=== PATIENT | female | born 1965 | race Caucasian/White ===

== ENCOUNTER → 2016-11-13 | Outpatient (CLI) | payer BC ==
[2016-11-13 09:54] LABS: CH 30.1; CHCM 33.3; HCT 45.2 % (34.0-46.0); HDW 2.54; HGB 14.7 gm/dL (11.4-16.0); MCH 29.5 pg (25.0-35.0); MCHC 32.5 g/dL (31.0-37.0); MCV 90.9 fL (80.0-100.0); Mean Platelet Volume 8.9; RBC 4.97 m/uL (3.80-5.40); WBC 6.2 k/uL (3.8-10.6)
[2016-11-13 10:04] LABS: ALT 34 U/L (9-52); AST 20 U/L (14-36); Alkaline Phosphatase 54 U/L (38-126); Anion Gap 13 mmol/L; Blood Urea Nitrogen 13 mg/dL (7-17); Calcium 10.1 mg/dL (8.4-10.2); Carbon Dioxide 29 mmol/L (22-30); Chloride 102 mmol/L (98-107); Cholesterol 228 mg/dL (<200); Glucose 88 mg/dL (74-99); HDL Cholesterol 92 mg/dL (40-60); Non-African American GFR(MDRD) >60 (>60 ml/min/1.73 sqM); Potassium 4.8 mmol/L (3.5-5.1); Sodium 144 mmol/L (137-145); Total Bilirubin 0.7 mg/dL (0.2-1.3); Total Protein 7.3 g/dL (6.3-8.2); Triglycerides 72 mg/dL (<150)
== END | disposition home or self-care (01) ==
LOC: LABWHC1 09:20
PROVIDERS: ATTEND Family Medicine
DX: F41.1 Generalized anxiety disorder (principal); F32.1 Major depressive disorder, single episode, moderate; Z71.89 Other specified counseling
CPT/HCPCS: 36415; 80053; 80061; 84439; 84443; 85027

== ENCOUNTER 2017-07-09 20:27 | Observation (INO) | payer BC ==
[2017-07-09] MEDS ORDERED: ASPIRIN 81 MG PO STA (20:50)
[2017-07-09] MEDS ORDERED: NITROGLYCERIN SL TABS 0.4 MG TAB SUBLINGUAL STA ×3 (20:50)
--- NOTE | 2017-07-09 20:52 | ED ---
General Adult HPI - General Chief complaint: Chest Pain Stated complaint: chest tightness/heartburn Time Seen by Provider: 07/09/17 20:41 Source: patient, family, RN notes reviewed Mode of arrival: ambulatory Limitations: no limitations - History of Present Illness Initial comments: Patient is a pleasant 51-year-old female presenting to the emergency department complaining of chest discomfort. Onset was around 1 AM. Discomfort was somewhat severe last night however has been more moderate since early this morning. Discomfort remains moderate. There is some radiation towards the back and neck. No associated dyspnea, nausea, or diaphoresis. Patient had similar symptoms previously following indigestion. Patient did attempt Pepcid and Tums without any improvement of symptoms this time. - Related Data Allergies Allergy/AdvReac Type Severity Reaction Status Date / Time iodine Allergy Anaphylaxis Verified 07/09/17 20:34 Penicillins Allergy Unknown Verified 07/09/17 20:34 Childhood Review of Systems ROS Statement: Those systems with pertinent positive or pertinent negative responses have been documented in the HPI. ROS Other: All systems not noted in ROS Statement are negative. Constitutional: Denies: fever Eyes: Denies: eye pain ENT: Denies: ear pain Respiratory: Denies: cough, dyspnea Cardiovascular: Reports: chest pain. Denies: palpitations Endocrine: Denies: fatigue Gastrointestinal: Denies: abdominal pain Genitourinary: Denies: dysuria Musculoskeletal: Reports: as per HPI Skin: Denies: rash Neurological: Denies: weakness Past Medical History Past Medical History: No Reported History History of Any Multi-Drug Resistant Organisms: None Reported Past Surgical History: Breast Surgery, Cholecystectomy Past Psychological History: No Psychological Hx Reported Smoking Status: Never smoker Past Alcohol Use History: None Reported Past Drug Use History: None Reported General Exam Limitations: no limitations General appearance: alert, in no apparent distress Head exam: Present: atraumatic Eye exam: Present: normal appearance, PERRL ENT exam: Present: normal oropharynx Neck exam: Present: normal inspection Respiratory exam: Present: normal lung sounds bilaterally. Absent: chest wall tenderness Cardiovascular Exam: Present: regular rate, normal rhythm Expanded Peripheral pulses: 2+: Radial (R), Radial (L), Dorsalis Pedis (R), Dorsalis Pedis (L) GI/Abdominal exam: Present: soft. Absent: tenderness Extremities exam: Present: normal inspection. Absent: pedal edema, calf tenderness Back exam: Present: normal inspection Neurological exam: Present: alert Psychiatric exam: Present: normal affect, normal mood Skin exam: Present: normal color Course Vital Signs 07/09/17 07/09/17 07/09/17 20:31 21:05 21:10 Temperature 98.3 F Pulse Rate 77 86 78 Respiratory 20 16 16 Rate Blood Pressure 108/58 113/64 112/67 O2 Sat by Pulse 99 99 96 Oximetry 07/09/17 07/09/17 21:14 23:32 Temperature Pulse Rate 85 69 Respiratory 16 18 Rate Blood Pressure 109/63 93/56 O2 Sat by Pulse 96 96 Oximetry EKG Findings - EKG Comments: EKG Findings:: Normal sinus rhythm 68. OK 162. QRS 86. QT 376. QTc 39. Normal axis. Normal QRS. No acute ST change. Medical Decision Making - Medical Decision Making Patient reevaluated and symptom-free following nitroglycerin. Patient family updated. Case discussed in detail with Dr. Cheatham, who will admit his patient. - Lab Data Result diagrams: 07/09/17 20:58 07/09/17 20:58 Lab Results 07/09/17 07/09/17 07/09/17 Range/Units 20:58 20:58 20:58 WBC 7.5 (3.8-10.6) k/uL RBC 4.68 (3.80-5.40) m/uL Hgb 14.1 (11.4-16.0) gm/dL Hct 41.6 (34.0-46.0) % MCV 89.0 (80.0-100.0) fL MCH 30.2 (25.0-35.0) pg MCHC 33.9 (31.0-37.0) g/dL RDW 13.8 (11.5-15.5) % Plt Count 187 (150-450) k/uL Neutrophils % 47 % Lymphocytes % 39 % Monocytes % 7 % Eosinophils % 5 % Basophils % 1 % Neutrophils # 3.5 (1.3-7.7) k/uL Lymphocytes # 2.9 (1.0-4.8) k/uL Monocytes # 0.6 (0-1.0) k/uL Eosinophils # 0.3 (0-0.7) k/uL Basophils # 0.1 (0-0.2) k/uL PT (9.0-12.0) sec INR (<1.2) APTT (22.0-30.0) sec D-Dimer (<0.60) mg/L FEU Sodium 143 (137-145) mmol/L Potassium 4.1 (3.5-5.1) mmol/L Chloride 104 (98-107) mmol/L Carbon Dioxide 26 (22-30) mmol/L Anion Gap 13 mmol/L BUN 18 H (7-17) mg/dL Creatinine 0.70 (0.52-1.04) mg/dL Est GFR (MDRD) Af Amer >60 (>60 ml/min/1.73 sqM) Est GFR (MDRD) Non-Af >60 (>60 ml/min/1.73 sqM) Glucose 92 (74-99) mg/dL Calcium 10.2 (8.4-10.2) mg/dL Magnesium 1.9 (1.6-2.3) mg/dL Total Bilirubin 0.4 (0.2-1.3) mg/dL AST 629 H (14-36) U/L ALT 703 H (9-52) U/L Alkaline Phosphatase 97 (38-126) U/L Total Creatine Kinase 38 (30-135) U/L CK-MB (CK-2) 0.7 (0.0-2.4) ng/mL CK-MB (CK-2) Rel Index 1.8 Troponin I <0.012 (0.000-0.034) ng/mL Total Protein 7.7 (6.3-8.2) g/dL Albumin 4.9 (3.5-5.0) g/dL 07/09/ Range/Units 20:58 WBC (3.8-10.6) k/uL RBC (3.80-5.40) m/uL Hgb (11.4-16.0) gm/dL Hct (34.0-46.0) % MCV (80.0-100.0) fL MCH (25.0-35.0) pg MCHC (31.0-37.0) g/dL RDW (11.5-15.5) % Plt Count (150-450) k/uL Neutrophils % % Lymphocytes % % Monocytes % % Eosinophils % % Basophils % % Neutrophils # (1.3-7.7) k/uL Lymphocytes # (1.0-4.8) k/uL Monocytes # (0-1.0) k/uL Eosinophils # (0-0.7) k/uL Basophils # (0-0.2) k/uL PT 10.3 (9.0-12.0) sec INR 1.0 (<1.2) APTT 22.5 (22.0-30.0) sec D-Dimer 0.44 (<0.60) mg/L FEU Sodium (137-145) mmol/L Potassium (3.5-5.1) mmol/L Chloride (98-107) mmol/L Carbon Dioxide (22-30) mmol/L Anion Gap mmol/L BUN (7-17) mg/dL Creatinine (0.52-1.04) mg/dL Est GFR (MDRD) Af Amer (>60 ml/min/1.73 sqM) Est GFR (MDRD) Non-Af (>60 ml/min/1.73 sqM) Glucose (74-99) mg/dL Calcium (8.4-10.2) mg/dL Magnesium (1.6-2.3) mg/dL Total Bilirubin (0.2-1.3) mg/dL AST (14-36) U/L ALT (9-52) U/L Alkaline Phosphatase (38-126) U/L Total Creatine Kinase (30-135) U/L CK-MB (CK-2) (0.0-2.4) ng/mL CK-MB (CK-2) Rel Index Troponin I (0.000-0.034) ng/mL Total Protein (6.3-8.2) g/dL Albumin (3.5-5.0) g/dL - Radiology Data Radiology results: image reviewed (Chest x-ray shows no acute process) Disposition Clinical Impression: Unstable angina pectoris Disposition: ADMITTED IP TO THIS [facility] Referrals: Jeancarlos Cheatham MD [Primary Care Provider] - 1-2 days Decision Time: 00:12
[2017-07-09 21:10] LABS: Basophils # (A) 0.1 k/uL (0-0.2); Basophils % (A) 1 %; CH 29.7; CHCM 33.5; Eosinophils # (A) 0.3 k/uL (0-0.7); Eosinophils % (A) 5 %; HCT 41.6 % (34.0-46.0); HDW 2.38; HGB 14.1 gm/dL (11.4-16.0); Luc # (Auto) 0.08; Luc % (Auto) 1; Lymphocytes # (A) 2.9 k/uL (1.0-4.8); Lymphocytes % (A) 39 %; MCH 30.2 pg (25.0-35.0); MCHC 33.9 g/dL (31.0-37.0); Monocytes # (A) 0.6 k/uL (0-1.0); Monocytes % (A) 7 %; Neutrophils # (A) 3.5 k/uL (1.3-7.7); Neutrophils % (A) 47 %; RBC 4.68 m/uL (3.80-5.40); RDW 13.8 % (11.5-15.5); WBC 7.5 k/uL (3.8-10.6); WBC (Perox) 7.34
[2017-07-09 21:18] LABS: ALT 703 U/L (9-52); AST 629 U/L (14-36); Alkaline Phosphatase 97 U/L (38-126); Anion Gap 13 mmol/L; Blood Urea Nitrogen 18 mg/dL (7-17); Calcium 10.2 mg/dL (8.4-10.2); Carbon Dioxide 26 mmol/L (22-30); Chloride 104 mmol/L (98-107); Glucose 92 mg/dL (74-99); Magnesium 1.9 mg/dL (1.6-2.3); Non-African American GFR(MDRD) >60 (>60 ml/min/1.73 sqM); Potassium 4.1 mmol/L (3.5-5.1); Sodium 143 mmol/L (137-145); Total Bilirubin 0.4 mg/dL (0.2-1.3); Total Protein 7.7 g/dL (6.3-8.2)
[2017-07-09 21:21] LABS: Creatine Kinase 38 U/L (30-135)
[2017-07-09 21:23] LABS: Partial Thromboplastin Time 22.5 sec (22.0-30.0); Prothrombin Time 10.3 sec (9.0-12.0)
--- NOTE | 2017-07-09 21:29 | XR ---
EXAMINATION TYPE: XR chest 2V DATE OF EXAM: 07/09/2017 COMPARISON: NONE HISTORY: Chest pain TECHNIQUE: Frontal and lateral views of the chest are obtained. FINDINGS: There is no focal air space opacity, pleural effusion, or pneumothorax seen. There is a m ild pectus excavatum deformity in the lateral image that partially obscures the right cardiac silhoue tte on the frontal image. The cardiac silhouette size is within normal limits. The osseous structur es are intact. Cholecystectomy clips are noted within the right upper quadrant. IMPRESSION: No acute cardiopulmonary process.
[2017-07-09 21:34] LABS: Creatine Kinase MB 0.7 ng/mL (0.0-2.4); Troponin I <0.012 ng/mL (0.000-0.034)
[2017-07-10] MEDS ORDERED: HEPARIN SODIUM,PORCINE 5,000 UNIT/ML 1 ML VIAL IV PRN (00:12)
[2017-07-10] MEDS ORDERED: HEPARIN SODIUM,PORCINE 5,000 UNIT/ML 1 ML VIAL IV ONE (00:12)
[2017-07-10] MEDS ORDERED: NITROGLYCERIN SL TABS 0.4 MG TAB SUBLINGUAL PRN (00:12)
[2017-07-10] MEDS ORDERED: HEPARIN SODIUM,PORCINE 25,000 UNIT in SODIUM CHLORIDE 0.9% 500 ML IV SCH (00:45)
[2017-07-10] MEDS: NITROGLYCERIN OINT 1 INCH/GM PACKET TOPICAL SCH ×5 (00:58→20:37)
[2017-07-10 01:30] VITALS: BMI 20.6
[2017-07-10 05:22] LABS: Creatine Kinase 25 U/L (30-135)
[2017-07-10 05:34] LABS: Creatine Kinase MB 0.4 ng/mL (0.0-2.4); Troponin I <0.012 ng/mL (0.000-0.034)
[2017-07-10 06:28] LABS: Mean Platelet Volume 9.3
[2017-07-10] MEDS: ASPIRIN 325 MG TAB PO SCH (07:55)
[2017-07-10 09:55] LABS: Creatine Kinase 27 U/L (30-135)
[2017-07-10 10:08] LABS: Creatine Kinase MB 0.4 ng/mL (0.0-2.4); Troponin I <0.012 ng/mL (0.000-0.034)
[2017-07-10] MEDS ORDERED: PANTOPRAZOLE 40 MG TABLET PO STA (11:00)
[2017-07-10] MEDS: METOPROLOL TARTRATE 12.5 MG TAB PO SCH (11:38)
[2017-07-10] MEDS ORDERED: RX INFO: IV CONTRAST WAS GIVEN 1 EACH MISC MISCELLANE PRN (12:04)
--- NOTE | 2017-07-10 12:16 | P.HPIM ---
History of Present Illness H&P Date: 07/10/17 Chief Complaint: Midsternal chest pain, epigastric tenderness 51-year-old female well-known to Dr. Cheatham, presents to the hospital with chest pain which awoke her from a sound sleep epigastric tenderness. Patient has never experienced chest discomfort like this in the past. Patient states it took her breath away, she decided that she was going to the emergency room Pain has resolved, no nausea no vomiting no other symptoms. Patient has been noted to have elevated AST and ALTs, gallbladder was removed approximately 10 years ago. While patient is here decided to get CT of abdomen and pelvis and check liver panel, Dr. Malcolm cardiology's has scheduled a stress thallium for the morning. 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 Review of Systems Constitutional: Reports as per HPI Cardiovascular: Reports chest pain (Chest pain both patient from a sound sleep) , Reports shortness of breath Respiratory: Reports as per HPI Gastrointestinal: Reports as per HPI Genitourinary: Reports as per HPI Menstruation: Reports as per HPI Musculoskeletal: Reports as per HPI Integumentary: Reports as per HPI Neurological: Reports as per HPI Psychiatric: Reports as per HPI Endocrine: Reports as per HPI Past Medical History Past Medical History: No Reported History History of Any Multi-Drug Resistant Organisms: None Reported Past Surgical History: Breast Surgery, Cholecystectomy Past Psychological History: No Psychological Hx Reported Smoking Status: Never smoker Past Alcohol Use History: None Reported Past Drug Use History: None Reported - Past Family History Mother Additional Family Medical History / Comment(s): Nerve pain Father Family Medical History: Cancer Additional Family Medical History / Comment(s): Bladder cancer, prostate cancer , bone cancer. Medications and Allergies Home Medications Medication Instructions Recorded Confirmed Type Naproxen Sodium [Aleve] 440 mg PO Q12H PRN 07/10/17 07/10/17 History Allergies Allergy/AdvReac Type Severity Reaction Status Date / Time Penicillins Allergy Unknown Verified 07/10/17 07:51 Childhood shellfish derived [Shellfish] Allergy Anaphylaxis Verified 07/10/17 11:05 Physical Exam Osteopathic Statement: *. No significant issues noted on an osteopathic structural exam other than those noted in the History and Physical/Consult. Vitals: Vital Signs Temp Pulse Pulse Resp BP BP Pulse Ox 07/10/17 08:00 97.7 F 61 18 96/51 97 07/10/17 04:00 18 07/10/17 00:25 65 18 112/66 96 07/10/17 00:21 98.4 F 62 18 108/55 97 07/09/17 23:32 69 18 93/56 96 07/09/17 21:14 85 16 109/63 96 07/09/17 21:10 78 16 112/67 96 07/09/17 21:05 86 16 113/64 99 07/09/17 20:31 98.3 F 77 20 108/58 99 Intake and Output 07/09/17 07/10/17 07/10/17 22:59 06:59 14:59 Intake Total 55.5 79.666 Balance 55.5 79.666 Intake: Intake, IV Titration 55.5 79.666 Amount Heparin Sodium,Porcine 25 55.5 79.666 ,000 unit In Sodium Chloride 0.9% 500 ml @ 12 UNITS/KG/HR 13.06 mls/hr IV .Q24H [facility] Rx#: [id number] Other: # Voids 2 Weight 54.431 kg 52.8 kg General: [Patient awake, alert and oriented times 3. Patient in no acute distress.] HEENT: [PERRL. EOMI. No pharyngeal erythema or exudate.] Neck: [No adenopathy.] Cardiac: [Heart regular in rate and rhythm. No S3. No S4. No clicks, rubs. No murmur.] Lungs: [Clear to auscultation bilaterally.] Abdomen: [No mass. No organomegaly. Bowel sounds presnt and normoactive in all 4 quadrants.] Mild epigastric tenderness Extremes: [No edema no cyanosis no claudication normal pulses] : [] Musculoskeletal: [No joint erythema, edema or tenderness.] Skin: [No rash.] Neurologic: [No lateralizing deficits. CN II - XII grossly intact.] Lymphatic: [No adenopathy.] Results CBC & Chem 7: 07/10/17 05:47 07/09/17 20:58 Labs: Abnormal Lab Results - Last 24 Hours (Table) 07/09/17 07/10/17 07/10/17 Range/Units 20:58 03:37 05:47 APTT 45.8 H (22.0-30.0) sec BUN 18 H (7-17) mg/dL AST 629 H (14-36) U/L ALT 703 H (9-52) U/L Total Creatine Kinase 25 L (30-135) U/L 07/10/17 Range/Units 09:03 APTT (22.0-30.0) sec BUN (7-17) mg/dL AST (14-36) U/L ALT (9-52) U/L Total Creatine Kinase 27 L (30-135) U/L Thrombosis Risk Factor Assmnt - DVT/VTE Prophylaxis DVT/VTE Prophylaxis: Low risk, early ambulation encouraged - Choose All That Apply Any of the Below Risk Factors Present?: Yes Each Factor Represents 1 point: Age 41-60 years Thrombosis Risk Factor Assessment Total Risk Factor Score: 1 Thrombosis Risk Factor Assessment Level: Low Risk Assessment and Plan (1) Elevated liver enzymes Narrative/Plan: This is an incidental finding to this admission will get CT of abdomen and pelvis and Check liver panel as well Current Visit: Yes Status: Acute Code(s): R74.8 - ABNORMAL LEVELS OF OTHER SERUM ENZYMES SNOMED Code(s): 535621005 (2) Unstable angina pectoris Narrative/Plan: Chest pain at rest, patient was evaluated by cardiology Echocardiogram and stress tests were scheduled for tomorrow Current Visit: Yes Status: Acute Code(s): I20.0 - UNSTABLE ANGINA SNOMED Code(s): 0795360 Time with Patient: Greater than 30
[2017-07-10 12:21] LABS: Bilirubin, Delta 0.2 mg/dL (0.0-0.2); Total Bilirubin 0.5 mg/dL (0.2-1.3); Total Protein 6.8 g/dL (6.3-8.2)
--- NOTE | 2017-07-10 13:12 | CONS ---
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 She came into the hospital because of ongoing epigastric burning sensation and chest discomfort. She does not have a significant past medical history. She does not take any medications on a regular basis. She is a reasonably active person. She has been experiencing for the last few days, what she describes as a burning sensation in the epigastric area and then feels that it comes up to her lower chest. She took some Tums, did not obtain much relief and then came into the hospital. After arrival in the hospital, she has not had much recurrence of pain. Apparently she woke up around 1:00 am and this pain actually woke her up from sleep. There is some radiation to the back as well as well. Her blood pressure has been normal. She does not have any hypertension. She HAS SOME ALLERGIES TO THE SHELLFISH AND PENICILLIN, but no allergy to iodine dye itself. She has no past history of significance. She had some breast surgery and cholecystectomy. She denies any chest pain or even epigastric burning at this time. She is resting comfortably without symptoms. PAST MEDICAL HISTORY: Unremarkable for any major medical problems. She is status post some breast surgery and cholecystectomy. SOCIAL HISTORY: Social history: She never smoked. Uses alcohol rarely. ALLERGIES: SHE IS ALLERGIC TO SHELLFISH AND PENICILLIN. MEDICATIONS: None. She occasionally used to take Lexapro. EXAM: Blood pressure is 108/60, pulse rate is about 66 per minute, regular. HEENT: Unremarkable. Fundus was not examined by me. NECK: Supple. There is no JVD. I do not hear a carotid bruit. Heart exam reveals S1, S2 heard normally. No rub, murmur or gallop lungs are clear. ABDOMEN: Soft. There is not much epigastric tenderness. Bowel sounds are normal. Lower extremities reveal palpable pulses. No edema. Central nervous system is normal EKG revealed a sinus mechanism without any acute changes. LABORATORY DATA: Revealed unremarkable troponins. D-dimer was normal. IMPRESSION: Atypical angina, rule out any gastroesophageal reflux disease. RECOMMENDATIONS: I am recommending that we will discontinue IV heparin. Place on subcu heparin. Start her on a small dose of Lopressor and Protonix. Will perform echo in the morning and EKG. She has liver function abnormalities which are quite significant and reason is unclear. We will do a liver panel as well, and I will perform a stress Cardiolite scan in the morning. Based on these, I will make further recommendations. If she has any further angina, I will change my approach and consider cardiac catheterization. Repeat EKG shows some nonspecific T-wave abnormality, but all troponins are normal and pain is atypical. If she has no further symptoms, we will proceed with stress Cardiolite scan in the morning and liver panel as well as echocardiogram. Discussed my thoughts in detail with the patient and her . Thank you very much for the consult. MMJUAN JOSEL / IJN: [id number] /
[2017-07-10] MEDS: IOHEXOL 350 MG/ML 25 ML BOTTLE (ORAL USE) PO PRN ×2 (14:44→15:50)
--- NOTE | 2017-07-10 16:48 | CT ---
EXAMINATION TYPE: CT abdomen pelvis wo/w con DATE OF EXAM: 07/10/2017 COMPARISON: NONE HISTORY: chest pain/elevated liver enzymes CT DLP: 613.70 mGycm Automated exposure control for dose reduction was used. TECHNIQUE: Helical acquisition of images was performed from the lung bases through the pelvis. CONTRAST: Performed with Oral Contrast and with IV Contrast, patient injected with 100 mL of Omnipaque 300. FINDINGS: Lung bases are clear. There is no pleural effusion. The liver spleen pancreas appear normal. There are clips from cholecystectomy. Bile ducts are not dil ated. There is no adrenal mass. Kidneys show satisfactory contrast opacification. There is no hydronephrosi s. There is no retroperitoneal adenopathy. There is no ascites. Appendix appears normal. There is a 3 cm cyst on the left ovary. Bladder distends smoothly. I see no intestinal wall thickening. There are no dilated loops. I see no bony destructive process. IMPRESSION: NEGATIVE CT SCAN OF THE ABDOMEN AND PELVIS. I DO NOT SEE A CAUSE FOR EPIGASTRIC PAIN. MINIMAL PECTUS EXCAVATUM CHEST DEFORMITY NOTED.
[2017-07-10] MEDS: HEPARIN SODIUM,PORCINE 5,000 UNIT/ML 1 ML VIAL SQ SCH (20:35)
[2017-07-10 23:04] LABS: Hepatitis B Surface Antibody Reactive (Non-Reactive)
[2017-07-10] MEDS: MELATONIN 3 MG TABLET PO SCH (23:53)
[2017-07-11] MEDS: NITROGLYCERIN OINT 1 INCH/GM PACKET TOPICAL SCH ×3 (03:22→18:19)
[2017-07-11 06:20] LABS: Mean Platelet Volume 9.9
[2017-07-11 06:36] LABS: Cholesterol 198 mg/dL (<200); HDL Cholesterol 79 mg/dL (40-60)
[2017-07-11] MEDS ORDERED: PANTOPRAZOLE 40 MG TABLET PO SCH (07:30)
[2017-07-11 09:36] LABS: ALT 424 U/L (9-52); AST 166 U/L (14-36); Alkaline Phosphatase 87 U/L (38-126); Anion Gap 9 mmol/L; Blood Urea Nitrogen 13 mg/dL (7-17); Calcium 9.9 mg/dL (8.4-10.2); Carbon Dioxide 25 mmol/L (22-30); Chloride 106 mmol/L (98-107); Glucose 85 mg/dL (74-99); Non-African American GFR(MDRD) >60 (>60 ml/min/1.73 sqM); Sodium 140 mmol/L (137-145); Total Bilirubin 0.4 mg/dL (0.2-1.3); Total Protein 6.4 g/dL (6.3-8.2)
[2017-07-11 09:45] LABS: Potassium 4.2 mmol/L (3.5-5.1)
[2017-07-11] MEDS: METOPROLOL TARTRATE 12.5 MG TAB PO SCH (10:15)
[2017-07-11] MEDS: ASPIRIN 325 MG TAB PO SCH (10:15)
[2017-07-11] MEDS: HEPARIN SODIUM,PORCINE 5,000 UNIT/ML 1 ML VIAL SQ SCH ×2 (10:15→21:00)
--- NOTE | 2017-07-11 10:25 | NM ---
EXAMINATION TYPE: NM stress cardiolite complete DATE OF EXAM: 07/11/2017 COMPARISON: NONE HISTORY: Cardiac function TECHNIQUE: After the intravenous administration of 10.9 mCi Tc 99m Sestamibi - Rest images obtained 45 minutes post injection. The patient exercised using a ZAINAB protocol and 1 minute prior to peak exercise was injected with 27.8 mCi Tc 99m Sestamibi - Stress images obtained 30 minutes post injecti on. FINDINGS: Targeted heart rate was achieved during performance of the study. Review of stress and rest SPECT indio ges demonstrates no distinct perfusion abnormality. Gated analysis shows normal wall motion with an estimated left ventricular ejection fraction of 67 %. IMPRESSION: No scintigraphic evidence for reversible ischemia
--- NOTE | 2017-07-11 11:25 | P.PN ---
Subjective Progress Note Date: 07/11/17 51-year-old female who presented to the emergency room on 07/10/2017 with midsternal chest pain and epigastric tenderness that woke her up from a sound sleep. The patient does not much of a past medical history. She is a nonsmoker. States she has very seldom alcohol intake with last drink approximately one month ago. Patient denies any medication use at home except for occasional Aleve. Patient underwent cholecystectomy approximately 10 years ago. The patient was admitted for further evaluation under the care of Dr. Cheatham/ [place]. Consultations were placed to cardiology The patient was placed on a heparin drip which has since been discontinued. An echo was completed which revealed EF of 55-60% with mild mitral regurgitation. Patient's EKG showed sinus rhythm. Chest x-ray was unremarkable. The patient's liver function tests were found to be elevated upon admission. AST 629. ALT 703. The patient underwent a computed tomography scan of the abdomen and pelvis which was unremarkable. LFTs this morning have improved. AST 166. ALT 424. Amylase and lipase were within normal limits. Hepatitis panel was completed which showed immunity to hepatitis B but was otherwise unremarkable. Consult to GI has been placed. The patient underwent stress test today which was negative. She complains of diarrhea but states she has a very sensitive stomach and always has to be careful of what she eats. She believes it is from the fluid she had to drink this morning for her stress test. She denies any chest pain currently. Denies shortness of breath or coughing. Patient states she ate a muffin and some toast. Denies nausea or vomiting. She does continue to complain of heartburn. Patient states she has a longstanding history of heartburn and takes TUMs as needed. Objective - Vital Signs Vital signs: Vital Signs Temp 97.7 F 07/11/17 04:00 Pulse 58 L 07/11/17 04:00 Resp 18 07/11/17 08:00 BP 93/45 07/11/17 04:00 Pulse Ox 96 07/11/17 04:00 Intake & Output 07/10/17 07/11/17 07/11/17 18:59 06:59 18:59 Intake Total 79.666 0 Balance 79.666 0 Weight 52.8 kg Intake: Intake, IV Titration 79.666 Amount Heparin Sodium,Porcine 25 79.666 ,000 unit In Sodium Chloride 0.9% 500 ml @ 12 UNITS/KG/HR 13.06 mls/hr IV .Q24H [facility] Rx#: [id number] Oral 0 Other: # Voids 0 0 - Exam GENERAL: This is a 51-year-old female in no apparent distress at the time of examination. Pleasant and cooperative. HEENT: Head is atraumatic, normocephalic. Pupils are equal, round, and reactive to light. Sclerae anicteric. Conjunctivae are clear. Mucus membranes of the mouth are moist. Neck is supple. RESPIRATORY: Clear to ausculation. No wheezes, rales, or rhonchi. No use of accessory muscles. Patient maintaining oxygen saturation greater than 92%. No chest wall tenderness is noted on palpation or with deep breathing. CARDIOVASCULAR: Regular rate and rhythm. S1 and S2 noted. No systolic or diastolic murmur auscultated. No JVD noted. No S3 or S4 noted. GASTROINTESTINAL: No distention noted. Abdomen soft and round. Normal active bowel sounds auscultated X 4 quadrants. No pain or tenderness noted upon palpation. INTEGUMENTARY: No cyanosis. No jaundice. No rashes noted. No cellulitis noted. EXTREMITIES: 2+ peripheral pulses. No evidence of peripheral edema. No calf tenderness noted. NEUROLOGIC: Cranial nerves II-XII intact. PSYCHIATRIC: Awake, alert, and oriented X 3. Appropriate affect. Intact judgement and insight. - Labs CBC & Chem 7: 07/11/17 05:49 07/11/17 05:49 Labs: Abnormal Lab Results - Last 24 Hours (Table) 07/10/17 07/10/17 07/11/17 Range/Units 11:38 11:38 05:49 AST 448 H (14-36) U/L ALT 626 H (9-52) U/L HDL Cholesterol 79 H (40-60) mg/dL Hep Bs Antibody Reactive H (Non-Reactive) 07/11/17 Range/Units 05:49 AST 166 H (14-36) U/L ALT 424 H (9-52) U/L HDL Cholesterol (40-60) mg/dL Hep Bs Antibody (Non-Reactive) Assessment and Plan Plan: ASSESSMENT: Chest pain, atypical, with negative troponins, stress test negative for ischemia , likely secondary to uncontrolled GERD Elevated liver function test with normal hepatitis panel and amylase and lipase within normal limits, GI consult pending Gastroesophageal reflux disease History of cholecystectomy PLAN: -Patient may transfer to general medical floor -Cardiology on consult. Appreciate recommendations and input -GI consulted for elevated LFTs -Order regular diet -Maalox and TUMS ordered PRN for heartburn -Immodium ordered for diarrhea PRN -Home meds as appropriate -Monitor labs. Repeat in a.m. -GI prophylaxis: Pepcid 20mg PO BID. Also add Protonix 40mg PO daily per Dr. Cheatham -DVT prophylaxis: Heparin 5000 units subcu every 8 hours -Monitor vital signs and address as appropriate -Discharge planning: Patient to return home when stable -Further recommendations pending patient's course Nurse practitioner note has been reviewed by physician. Signing provider agrees with the documented findings, assessment, and plan of care.
--- NOTE | 2017-07-11 11:44 | ECHOF ---
Referral Reason:cardiac function MEASUREMENTS -------- HEIGHT: 160.0 cm WEIGHT: 51.3 kg BP: 93/45 RVIDd: 2.5 cm (< 3.3) IVSd: 0.8 cm (0.6 - 1.1) LVIDd: 3.3 cm (3.9 - 5.3) LVPWd: 0.9 cm (0.6 - 1.1) IVSs: 1.1 cm LVIDs: 2.7 cm LVPWs: 1.2 cm LA Diam: 2.2 cm (2.7 - 3.8) LAESV Index (A-L): 16.19 ml/m Ao Diam: 2.6 cm (2.0 - 3.7) AV Cusp: 1.9 cm (1.5 - 2.6) MV EXCURSION: 13.275 mm (> 18.000) MV EF SLOPE: 96 mm/s (70 - 150) EPSS: 0.3 cm MV E Nish: 0.82 m/s MV DecT: 279 ms MV A Nish: 0.60 m/s MV E/A Ratio: 1.37 FINDINGS -------- Resting bradycardia (HR<60bpm). This was a technically good study. The left ventricular size is normal. Left ventricular wall thickness is normal. Overall left vent ricular systolic function is normal with, an EF between 55 - 60 %. The right ventricle is normal in size and function. Normal LA size by volume 22+/-6 ml/m2. The right atrium is normal in size. The aortic valve is trileaflet and appears structurally normal. Mild mitral annular calcification present. Mild mitral regurgitation is present. The tricuspid valve appears structurally normal. The pulmonic valve was not well visualized. The aortic root size is normal. Normal inferior vena cava with normal inspiratory collapse consistent with estimated right atrial pre ssure of 5 mmHg. There is no pericardial effusion. CONCLUSIONS -------- 1. Resting bradycardia (HR<60bpm). 2. This was a technically good study. 3. The left ventricular size is normal. 4. Left ventricular wall thickness is normal. 5. Overall left ventricular systolic function is normal with, an EF between 55 - 60 %. 6. The right ventricle is normal in size and function. 7. Normal LA size by volume 22+/-6 ml/m2. 8. The right atrium is normal in size. 9. The aortic valve is trileaflet and appears structurally normal. 10. Mild mitral annular calcification present. 11. Mild mitral regurgitation is present. 12. The tricuspid valve appears structurally normal. 13. The pulmonic valve was not well visualized. 14. The aortic root size is normal. 15. Normal inferior vena cava with normal inspiratory collapse consistent with estimated right atrial pressure of 5 mmHg. 16. There is no pericardial effusion. FUSION OPERATOR: Ritika Toribio RDCS
[2017-07-11 11:51] LABS: Amylase 58 U/L (30-110)
[2017-07-11] MEDS ORDERED: LOPERAMIDE 2 MG CAP PO STA (12:13)
[2017-07-11] MEDS ORDERED: LOPERAMIDE 2 MG CAP PO PRN (12:13)
--- NOTE | 2017-07-11 13:35 | EST ---
EXERCISE STRESS DATE OF SERVICE: 07/11/2017 AGE: 51 SEX: Female HT: 63" WT: 116 pounds PROTOCOL: Cardiolite Kp STAGE: III DURATION OF EXERCISE: 9 minutes HEART RATE REST: 67 BLOOD PRESSURE REST: 119/72 MAXIMUM HEART RATE ACHIEVED: 151 MAXIMUM BLOOD PRESSURE: 127/69 85% MPHR: 145 100% MPHR: 170 METS: 10.5 INDICATIONS: Chest pain. CLINICAL INFORMATION: Patient was exercised for a total of period of 9 minutes. Peak heart rate of 151 was achieved. Maximum blood pressure 127/69 mmHg was noted. The resting EKG shows normal sinus rhythm with normal WV interval and QRS duration and normal ST-T waves. No ST- segment depression suggestive of ischemia is noted. The patient did not complain of any chest pain during the test. Occasional PVCs were noted in the postexercise period. FINAL IMPRESSION: This exercise test is not suggestive of ischemia. Patient's exercise tolerance is normal. Occasional PVCs were noted in the postexercise period. The results of the nuclear study will follow. MMKASSANDRA / JONON: [id number] /
[2017-07-11] MEDS ORDERED: MAG HYDROX/AL HYDROX/SIMETH 30 ML CUP PO PRN (14:27)
[2017-07-11] MEDS ORDERED: CALCIUM CARBONATE 500 MG CHEWABLE PO PRN (14:28)
--- NOTE | 2017-07-11 15:07 | PN ---
PROGRESS NOTE Mrs. Brown had a stress test today. There is no evidence of ischemia. Exercise capacity is decent. Vital signs are stable. S1, S2 heard normally. Lungs are clear. Abdomen and lower extremity exam is unchanged. MMODL / IJN: [id number] /
[2017-07-11] MEDS: FAMOTIDINE 20 MG TAB PO SCH (21:00)
[2017-07-11] MEDS: MELATONIN 3 MG TABLET PO SCH (21:00)
[2017-07-12] MEDS: NITROGLYCERIN OINT 1 INCH/GM PACKET TOPICAL SCH ×3 (00:13→08:42)
[2017-07-12 07:26] VITALS: BP 167/73; PULSE 86; RESP 16; TEMP 97.9
[2017-07-12] MEDS ORDERED: PANTOPRAZOLE 40 MG TABLET PO SCH (07:30)
[2017-07-12 08:16] LABS: Mean Platelet Volume 10.1
[2017-07-12] MEDS: ASPIRIN 325 MG TAB PO SCH (08:42)
[2017-07-12] MEDS: HEPARIN SODIUM,PORCINE 5,000 UNIT/ML 1 ML VIAL SQ SCH (08:42)
[2017-07-12 08:43] LABS: ALT 314 U/L (9-52); AST 100 U/L (14-36); Alkaline Phosphatase 89 U/L (38-126); Anion Gap 8 mmol/L; Blood Urea Nitrogen 12 mg/dL (7-17); Calcium 9.8 mg/dL (8.4-10.2); Carbon Dioxide 29 mmol/L (22-30); Chloride 106 mmol/L (98-107); Glucose 82 mg/dL (74-99); Non-African American GFR(MDRD) >60 (>60 ml/min/1.73 sqM); Potassium 4.4 mmol/L (3.5-5.1); Sodium 143 mmol/L (137-145); Total Bilirubin 0.4 mg/dL (0.2-1.3); Total Protein 6.3 g/dL (6.3-8.2)
[2017-07-12] MEDS: METOPROLOL TARTRATE 12.5 MG TAB PO SCH (08:43)
[2017-07-12] MEDS: FAMOTIDINE 20 MG TAB PO SCH (08:43)
--- NOTE | 2017-07-12 09:54 | P.DS ---
Providers Date of admission: 07/10/17 00:14 Expected date of discharge: 07/12/17 Attending physician: Jeancarlos Cheatham Consults: 07/10/17 00:12 Consult Physician Urgent Consulting Provider: Mega Corcoran Consult Reason/Comments: ua Do you want consulting provider notified?: Yes 07/11/17 09:50 Consult Physician Routine Consulting Provider: Craig Jones Consult Reason/Comments: abnormal liver function tests Do you want consulting provider notified?: Yes Primary care physician: Jeancarlos Cheatham [facility] Course: 51-year-old female who presented to the emergency room on 07/10/2017 with midsternal chest pain and epigastric tenderness that woke her up from a sound sleep. The patient does not much of a past medical history. She is a nonsmoker. States she has very seldom alcohol intake with last drink approximately one month ago. Patient denies any medication use at home except for occasional Aleve. Patient underwent cholecystectomy approximately 10 years ago. The patient was admitted for further evaluation under the care of Dr. Cheatham/ Dolores. Consultations were placed to cardiology The patient was placed on a heparin drip which has since been discontinued. An echo was completed which revealed EF of 55-60% with mild mitral regurgitation. Patient's EKG showed sinus rhythm. Chest x-ray was unremarkable. Stress test was completed and was negative. The patient was experiencing heartburn which she says is controlled at this time. The patient's liver function tests were found to be elevated upon admission. AST 629. ALT 703. The patient underwent a computed tomography scan of the abdomen and pelvis which was unremarkable. LFTs continue to trend downwards. Amylase and lipase were within normal limits. Hepatitis panel was completed which showed immunity to hepatitis B but was otherwise unremarkable. Consult to GI has been placed. The patient is anxious to be discharged home today. Still awaiting GI evaluation. Patient is asymptomatic and LFTs continue to improve daily. The patient was deemed stable for discharge per Dr. Cheatham. She was she is to repeat her labs on Tuesday and will follow up with Dr. Cheatham early next week. She is to follow up with GI physician on an outpatient basis. DISCHARGE DIAGNOSIS: Chest pain, atypical, with negative troponins, stress test negative for ischemia , likely secondary to uncontrolled GERD, resolved at time of discharge Elevated liver function test with normal hepatitis panel and amylase and lipase within normal limits, patient will follow up with GI physician outpatient Gastroesophageal reflux disease History of cholecystectomy Nurse practitioner note has been reviewed by physician. Signing provider agrees with the documented findings, assessment, and plan of care. Patient Condition at Discharge: Stable Plan - Discharge Summary Discharge Rx Participant: No New Discharge Prescriptions: New Lansoprazole [Prevacid] 15 mg PO DAILY #30 cap Continue Naproxen Sodium [Aleve] 440 mg PO Q12H PRN PRN Reason: Pain Discharge Medication List Naproxen Sodium [Aleve] 440 mg PO Q12H PRN 07/10/17 [History] Lansoprazole [Prevacid] 15 mg PO DAILY #30 cap 07/12/17 [Rx] Follow up Appointment(s)/Referral(s): Jeancarlos Cheatham MD [Primary Care Provider] - 07/18/17 Craig Jones MD [STAFF PHYSICIAN] - 1 Week Ambulatory/Diagnostic Orders: Amylase [LAB.AMB] Time Frame: 07/15/17, Location: Determined By Patient Amylase [LAB.AMB] Time Frame: 07/15/17, Location: Determined By Patient Comprehensive Metabolic Panel [LAB.AMB] Time Frame: 07/15/17, Location: Determined By Patient Comprehensive Metabolic Panel [LAB.AMB] Time Frame: 07/15/17, Location: Determined By Patient Lipase [LAB.AMB] Time Frame: 07/15/17, Location: Determined By Patient Lipase [LAB.AMB] Time Frame: 07/15/17, Location: Determined By Patient Activity/Diet/Wound Care/Special Instructions: Avoid Tylenol. Avoid alcohol. Discharge Disposition: HOME SELF-CARE
== END 2017-07-12 10:34 | disposition home or self-care (01) ==
LOC: EC 20:27 → 6SEL 07-10 00:14 → 4MS4W 07-11 16:06
PROVIDERS: ADMIT Family Medicine; ATTEND Family Medicine
DX: R07.89 Other chest pain (principal); K21.9 Gastro-esophageal reflux disease without esophagitis; R74.8 Abnormal levels of other serum enzymes; Z90.49 Acquired absence of other specified parts of digestive tract; Z88.0 Allergy status to penicillin; Z91.013 Allergy to seafood
CPT/HCPCS: 99285 ×2; 96376 ×4; 96365; 96366; 36415; 94760; 93005; 93017; 93306; 86803; 85379; 86709; 80061; 80053 ×3; 80076; 80074; 82150; 82550 ×2; 82553 ×2; 83690; 83735; 84484 ×2; 85025; 85049 ×3; 85610; 85730 ×2; 86706; 87340; 71020; 74178; 78452; G0378 ×3; A9500; J1644 ×3; Q9967

== ENCOUNTER → 2017-07-15 | Outpatient (CLI) | payer BC ==
[2017-07-15 11:06] LABS: ALT 185 U/L (9-52); AST 68 U/L (14-36); Alkaline Phosphatase 69 U/L (38-126); Amylase 56 U/L (30-110); Anion Gap 8 mmol/L; Blood Urea Nitrogen 13 mg/dL (7-17); Calcium 9.8 mg/dL (8.4-10.2); Carbon Dioxide 29 mmol/L (22-30); Chloride 104 mmol/L (98-107); Glucose 71 mg/dL (74-99); Non-African American GFR(MDRD) >60 (>60 ml/min/1.73 sqM); Potassium 4.8 mmol/L (3.5-5.1); Sodium 141 mmol/L (137-145); Total Bilirubin 0.4 mg/dL (0.2-1.3); Total Protein 6.6 g/dL (6.3-8.2)
== END | disposition home or self-care (01) ==
LOC: LABWHC1 09:08
PROVIDERS: ATTEND Nurse Practitioner
DX: R79.89 Other specified abnormal findings of blood chemistry (principal)
CPT/HCPCS: 36415; 80053; 82150; 83690

== ENCOUNTER → 2017-07-23 | Outpatient (CLI) | payer BC ==
[2017-07-23 11:56] LABS: ALT 53 U/L (9-52); AST 25 U/L (14-36); Alkaline Phosphatase 73 U/L (38-126); Anion Gap 13 mmol/L; Blood Urea Nitrogen 20 mg/dL (7-17); C Reactive Protein <5.0 mg/L (<10.0); Calcium 10.7 mg/dL (8.4-10.2); Carbon Dioxide 27 mmol/L (22-30); Chloride 101 mmol/L (98-107); Glucose 68 mg/dL (74-99); Non-African American GFR(MDRD) >60 (>60 ml/min/1.73 sqM); Potassium 5.1 mmol/L (3.5-5.1); Sodium 141 mmol/L (137-145); Total Bilirubin 0.4 mg/dL (0.2-1.3); Total Protein 7.9 g/dL (6.3-8.2)
== END | disposition home or self-care (01) ==
LOC: LABWHC1 10:03
PROVIDERS: ATTEND Family Medicine
DX: R94.6 Abnormal results of thyroid function studies (principal); F41.1 Generalized anxiety disorder; F32.1 Major depressive disorder, single episode, moderate; Z79.890 Hormone replacement therapy
CPT/HCPCS: 36415; 80053; 85652; 86140

== ENCOUNTER → 2018-11-14 | Outpatient (CLI) | payer BC ==
[2018-11-14 12:06] LABS: Basophils % (A) 1 %; Eosinophils # (A) 0.1 k/uL (0-0.7); Eosinophils % (A) 2 %; HCT 39.5 % (34.0-46.0); Lymphocytes # (A) 1.4 k/uL (1.0-4.8); Lymphocytes % (A) 24 %; MCHC 32.8 g/dL (31.0-37.0); MCV 88.4 fL (80.0-100.0); Mean Platelet Volume 9.7; Monocytes # (A) 0.3 k/uL (0-1.0); Monocytes % (A) 6 %; Neutrophils % (A) 67 %; Platelet Count 193 k/uL (150-450); RBC 4.47 m/uL (3.80-5.40); RDW 13.3 % (11.5-15.5)
[2018-11-14 16:34] LABS: Albumin 4.6 g/dL (3.80-4.90); Albumin/Globulin Ratio 2.42 (1.60-3.17); Anion Gap 11.3 mmol/L (4.00-12.00); Calcium 9.6 mg/dL (8.7-10.3); Carbon Dioxide 27.7 mmol/L (21.6-31.8); Globulin 1.9 g/dL (1.6-3.3); Potassium 4.2 mmol/L (3.5-5.5); Total Bilirubin 0.4 mg/dL (0.3-1.2); Total Protein 6.5 g/dL (6.2-8.2)
== END | disposition home or self-care (01) ==
LOC: LABWHC1 10:57
PROVIDERS: ATTEND Nurse Practitioner Family
DX: Z00.00 Encounter for general adult medical examination without abnormal findings (principal)
CPT/HCPCS: 36415; 80053; 80061; 84443; 85025

== ENCOUNTER → 2018-11-23 | Outpatient (CLI) | payer BC ==
--- NOTE | 2018-11-23 16:50 | US ---
EXAMINATION TYPE: US kidneys/renal and bladder DATE OF EXAM: 11/23/2018 COMPARISON: CLINICAL HISTORY: R31.9 Hematuria; Z79.890 Hormone replacement therapy. Microscopic hematuria, no fla nk pain EXAM MEASUREMENTS: Right Kidney: 10.7 x 3.2 x 4.0 cm Left Kidney: 11.7 x 4.2 x 4.3 cm Right Kidney: Limited visualization of lower pole due to overlying bowel gas Left Kidney: wnl Bladder: distended, wnl Bilateral Jets seen not visualized Cortical medullary differentiation is maintained bilaterally. No evident renal mass. IMPRESSION: Some limitations as described. Renal sizes as above.
--- NOTE | 2018-11-23 16:59 | US ---
EXAMINATION TYPE: US transvaginal DATE OF EXAM: 11/23/2018 COMPARISON: CT 07/10/2017 CLINICAL HISTORY: R31.9 Hematuria; Z79.890 Hormone replacement therapy. Patient states using progeste karina cream TECHNIQUE: Transvaginal (TV). Date of LMP: Unknown, EXAM MEASUREMENTS: Uterus: 5.4 x 2.9 x 3.0 cm Right Ovary: 1.8 x 1.0 x 1.2 cm Left Ovary: 4.7 x 3.7 x 2.9 cm 1. Uterus: Anteverted Appears heterogenous and small in size. No prominent masses visualized. 2. Endometrium: Not visualized, shadowing seen 3. Right Ovary: appears small in size 4. Left Ovary: simple cystic appearing lesion seen - 4.2 x 3.4 x 2.5 cm 5. Bilateral Adnexa: free fluid seen adjacent to left ovary 6. Posterior cul-de-sac: free fluid IMPRESSION: Uterus is somewhat atrophic, there is limited evaluation. Cystic focus is associated with the left ovary was seen on prior CT and is similar in size. Follow-up suggested.
== END | disposition home or self-care (01) ==
LOC: RADUSWWP 15:36
PROVIDERS: ATTEND Family Medicine
DX: N85.8 Other specified noninflammatory disorders of uterus (principal); N83.202 Unspecified ovarian cyst, left side; Z79.890 Hormone replacement therapy; Z88.0 Allergy status to penicillin
CPT/HCPCS: 76770; 76830

== ENCOUNTER → 2018-12-07 | Outpatient (CLI) | payer BC ==
--- NOTE | 2018-12-08 09:43 | MM ---
Reason for exam: screening (asymptomatic). Last mammogram was performed 3 years and 2 months ago. History: Patient is postmenopausal and history of other cancer. Family history of premenopausal breast cancer in sister at age 40. Benign excisional biopsy of the left breast, 1989. Benign excisional biopsy of the right breast, 1979. Took progesterone for 1 year 2 months. Took unspecified hormones for 2 years. Physical Findings: A clinical breast exam by your physician is recommended on an annual basis and results should be correlated with mammographic findings. MG 3D Screening Mammo W/Cad Bilateral CC and MLO view(s) were taken. Prior study comparison: September 27, 2015, bilateral MG screening mammo w CAD. December 17, 2011, left diagnostic mammogram w/CAD. The breast tissue is extremely dense which could obscure a lesion on mammography. There is a right retroareolar oval, circumscribed mass. Left central inner partially visualized posterior depth mass. ASSESSMENT: Incomplete: need additional imaging evaluation, BI-RAD 0 RECOMMENDATION: Special view mammogram of both breasts. If lesion persists on supplemental views, image directed ultrasound is recommended. [facility] will attempt to contact patient to return for supplemental views and ultrasound if indicated.
== END | disposition home or self-care (01) ==
LOC: RADMAMWWP 16:34
PROVIDERS: ATTEND Family Medicine
DX: Z12.31 Encounter for screening mammogram for malignant neoplasm of breast (principal)
CPT/HCPCS: 77063; 77067

== ENCOUNTER → 2018-12-20 | Outpatient (CLI) | payer BC ==
--- NOTE | 2018-12-21 08:10 | MM ---
Reason for exam: additional evaluation requested from abnormal screening. Last mammogram was performed less than 1 month ago. History: Patient is postmenopausal and history of other cancer. Family history of premenopausal breast cancer in sister at age 40. Benign excisional biopsy of the left breast, 1989. Benign excisional biopsy of the right breast, 1979. Took progesterone for 1 year 2 months. Took unspecified hormones for 2 years. Physical Findings: Nurse Summary: 2cm nodule in the right breast at 10-11 o'clock (nurse adrienne). MG 3D Work Up W/Cad JORGE LUIS Bilateral spot compression CC and spot compression MLO view(s) were taken. ML view(s) were taken of the right breast. LM view(s) were taken of the left breast. Prior study comparison: December 07, 2018, bilateral MG 3d screening mammo w/cad. September 27, 2015, bilateral MG screening mammo w CAD. The breast tissue is extremely dense which could obscure a lesion on mammography. Nodularity persists bilaterally. Ultrasound is recommended. These results were verbally communicated with the patient and result sheet given to the patient on 12/20/18. ASSESSMENT: Incomplete: need additional imaging evaluation, BI-RAD 0 RECOMMENDATION: Ultrasound of both breasts.
--- NOTE | 2018-12-21 08:12 | USB ---
Reason for exam: additional evaluation requested from abnormal screening. History: Patient is postmenopausal and history of other cancer. Family history of premenopausal breast cancer in sister at age 40. Benign excisional biopsy of the left breast, 1989. Benign excisional biopsy of the right breast, 1979. Took progesterone for 1 year 2 months. Took unspecified hormones for 2 years. US Breast Workup Limited JORGE LUIS Right limited breast ultrasound including focal area of concern, retroareolar and axilla demonstrates no cystic or solid lesion seen. Left limited breast ultrasound including focal area of concern, retroareolar and axilla demonstrates no cystic or solid lesion seen. These results were verbally communicated with the patient and result sheet given to the patient on 12/20/18. ASSESSMENT: Negative, BI-RAD 1 RECOMMENDATION: Routine screening mammogram of both breasts in 6 months.
== END | disposition home or self-care (01) ==
LOC: RADMAMWWP 13:36
PROVIDERS: ATTEND Family Medicine
DX: R92.8 Other abnormal and inconclusive findings on diagnostic imaging of breast (principal)
CPT/HCPCS: 77062; 77066

== ENCOUNTER → 2019-09-03 | Outpatient (CLI) | payer BC ==
--- NOTE | 2019-09-04 11:37 | MM ---
Reason for exam: screening (asymptomatic). Last mammogram was performed 8 months ago. History: Patient is postmenopausal and history of other cancer. Family history of premenopausal breast cancer in sister at age 40. Benign excisional biopsy of the left breast, 1989. Benign excisional biopsy of the right breast, 1979. Took hormonal contraceptives for 10 years. Took progesterone for 1 year 2 months. Took unspecified hormones for 2 years. Physical Findings: A clinical breast exam by your physician is recommended on an annual basis and results should be correlated with mammographic findings. MG 3D Screening Mammo W/Cad Bilateral CC and MLO view(s) were taken. Prior study comparison: December 20, 2018, bilateral MG 3d work up w/cad JORGE LUIS. December 07, 2018, bilateral MG 3d screening mammo w/cad. The breast tissue is extremely dense which could obscure a lesion on mammography. There is chronic nodularity bilaterally. No significant changes when compared with prior studies. ASSESSMENT: Benign, BI-RAD 2 RECOMMENDATION: Routine screening mammogram of both breasts in 1 year.
== END | disposition home or self-care (01) ==
LOC: RADMAMWWP 06:55
PROVIDERS: ATTEND Family Medicine
DX: Z12.31 Encounter for screening mammogram for malignant neoplasm of breast (principal)
CPT/HCPCS: 77063; 77067

== ENCOUNTER → 2021-12-04 | Outpatient (CLI) | payer BC ==
--- NOTE | 2021-12-07 10:12 | MM ---
Reason for exam: screening (asymptomatic). Last mammogram was performed 2 years and 3 months ago. History: Patient is postmenopausal and history of other cancer. Family history of premenopausal breast cancer in sister at age 40. Benign excisional biopsy of the left breast, 1989. Benign excisional biopsy of the right breast, 1979. Took hormonal contraceptives for 10 years. Took progesterone for 1 year 2 months. Took unspecified hormones for 2 years. Physical Findings: A clinical breast exam by your physician is recommended on an annual basis and results should be correlated with mammographic findings. MG Screening Mammo w CAD Bilateral CC and MLO view(s) were taken. Prior study comparison: September 03, 2019, bilateral MG 3d screening mammo w/cad. December 20, 2018, bilateral MG 3d work up w/cad JORGE LUIS. The breast tissue is extremely dense which could obscure a lesion on mammography. There is no discrete abnormality. No significant changes when compared with prior studies. ASSESSMENT: Negative, BI-RAD 1 RECOMMENDATION: Routine screening mammogram of both breasts in 1 year.
== END | disposition home or self-care (01) ==
LOC: RADMAMWWP 07:16
PROVIDERS: ATTEND Family Medicine
DX: Z12.31 Encounter for screening mammogram for malignant neoplasm of breast (principal); Z80.3 Family history of malignant neoplasm of breast; Z78.0 Asymptomatic menopausal state
CPT/HCPCS: 77067

== ENCOUNTER → 2023-03-16 | Outpatient (CLI) | payer BC ==
--- NOTE | 2023-03-17 08:29 | MR ---
EXAMINATION TYPE: MR shoulder LT wo con DATE OF EXAM: 03/16/2023 7:11 AM COMPARISON: NONE HISTORY: No prior, no injury, left shoulder pain with reduced strength for 8 months TECHNIQUE: Multiplanar multispin echo imaging of the left shoulder was performed. FINDINGS: Rotator cuff : There is mild heterogeneity and thickening of the supraspinatus tendon felt to reflect mild chronic tendinopathy. There is no complete or bursal/articular sided partial rotator cuff tear. The subscapularis constituent of the rotator cuff is intact. Bursa: No bursal effusion or thickening is seen. Musculature: There is no muscular tear, contusion, or atrophy. Acromioclavicular joint : There are mild degenerative changes of the acromioclavicular joint. There is no anterior or lateral acromial downsloping. Osseous structures : There are no fractures. There is subchondral cyst of the humeral head adjacent t o the greater tuberosity measuring 7 mm. Long biceps tendon : The biceps tendon is normally situated within the bicipital groove. No complete or partial biceps tendon tear is present. Glenohumeral Joint fluid : There is no glenohumeral joint effusion. Cartilage and Bone : No focal hyaline cartilage defects are noted. No Hill-Sachs, reverse Hill-Sachs, or bony Bankart lesions are seen. Labrum : There are no SLAP or soft tissue Bankart lesions. No paralabral cysts are seen. OTHER FINDINGS : none IMPRESSION: 1. Mild chronic tendinopathy of the supraspinatus tendon. 2. Subchondral cyst of the humeral head.
== END | disposition home or self-care (01) ==
LOC: RADMRIMAIN 06:25
PROVIDERS: ATTEND Orthopaedic Surgery
DX: S46.012A Strain of muscle(s) and tendon(s) of the rotator cuff of left shoulder, initial encounter (principal); M85.612 Other cyst of bone, left shoulder; M67.814 Other specified disorders of tendon, left shoulder

== ENCOUNTER → 2023-07-25 | Outpatient (CLI) | payer BC ==
--- NOTE | 2023-07-26 20:37 | MM ---
Reason for Exam: Screening (asymptomatic). Last mammogram was performed 1 year(s) and 8 month(s) ago. Patient History: Menarche at age 13. First Full-Term at age 20. Postmenopausal. Other cancer. Progesterone for 1 year, 2 months. Patient used Hormonal Contraceptives for 10 years. Patient used Unspecified Hormone for 2 years. 1979, Benign Excisional Biopsy on the right side. 1989, Benign Excisional Biopsy on the left side. Sister had breast cancer, age 40. Risk Values: Ken 5 year model risk: 3.4%. NCI Lifetime model risk: 20.8%. Prior Study Comparison: 12/20/2018 Bilateral Diagnostic Mammogram, [facility]. 09/03/2019 Bilateral Screening Mammogram, [facility]. 12/04/2021 Bilateral Screening Mammogram, [facility]. Tissue Density: The breast tissue is extremely dense which could obscure a lesion on mammography. Findings: Analyzed By CAD. Chronic nodularity anterior right breast. There is no suspicious group of microcalcifications or new suspicious mass in either breast. Overall Assessment: Benign, BI-RAD 2 Management: Screening Mammogram of both breasts in 1 year. SEE NOTE BELOW IN REGARDS TO PATIENT'S INCREASED 5 YEAR KEN SCORE AND INCREASED LIFETIME RISK SCORE. ALSO, CONSIDER SUPPLEMENTARY SCREENING WITH BREAST ULTRASOUND GIVEN THE EXTREMELY DENSE BREAST TISSUE. Patient should continue monthly self-breast exams. A clinical breast exam by your physician is recommended on an annual basis. This exam should not preclude additional follow-up of suspicious palpable abnormalities. Note on Ken scores and lifetime risk: 1. A Ken score greater than 3% is considered moderate risk. If this is the case, consider specialist referral to assess eligibility for a risk reducing agent. 2. If overall lifetime risk for the development of breast cancer is 20% or higher, the patient may qualify for future screening with alternating mammogram and breast MRI. Electronically signed and approved by: Nikki Hansen M.D. Radiologist
== END | disposition home or self-care (01) ==
LOC: RADMAMWWP 13:37
PROVIDERS: ATTEND Family Medicine
DX: Z12.31 Encounter for screening mammogram for malignant neoplasm of breast (principal); Z80.3 Family history of malignant neoplasm of breast; Z78.0 Asymptomatic menopausal state
CPT/HCPCS: 77067

== ENCOUNTER → 2024-02-22 | Outpatient (CLI) | payer BC ==
[2024-02-22 18:32] LABS: Basophils # (A) 0.05 X 10*3/uL (0.00-0.10); Basophils % (A) 0.7 %; Eosinophils # (A) 0.14 X 10*3/uL (0.04-0.35); Eosinophils % (A) 2.1 %; HCT 46.3 % (37.2-46.3); HGB 15.2 g/dL (12.0-15.0); Lymphocytes # (A) 3.06 X 10*3/uL (0.90-5.00); MCH 30.8 pg (27.0-32.0); MCHC 32.8 g/dL (32.0-37.0); MCV 93.7 FL (80.0-97.0); Monocytes # (A) 0.51 X 10*3/uL (0.20-1.00); Monocytes % (A) 7.5 %; NRBC Per 100 WBC 0 X 10*3/uL (0.00-0.01); Neutrophils # (A) 3.02 X 10*3/uL (1.80-7.70); Neutrophils % (A) 44.4 %; Platelet Count 189 X 10*3/uL (140-440); RBC 4.94 X 10*6/uL (4.10-5.20); RDW 12.4 % (11.5-14.5)
[2024-02-22 20:09] LABS: BUN/Creat Ratio 21.29 Ratio (12.00-20.00); Blood Urea Nitrogen 14.9 mg/dL (9.0-27.0); Chol/HDL Ratio 2.65 Ratio; Glucose 73 mg/dL (70-110); LDL Cholesterol,Calculated 151.4 mg/dL (0.0-131.0); VLDL Calculation 11.82 mg/dL (5.00-40.00)
[2024-02-22 20:10] LABS: ALT 19 U/L (8-44); AST 25 U/L (13-35); Albumin 5.1 g/dL (3.8-4.9); Albumin/Globulin Ratio 2.43 Ratio (1.60-3.17); Alkaline Phosphatase 66 U/L (41-126); Calcium 10.1 mg/dL (8.7-10.3); Carbon Dioxide 23.8 mmol/L (21.6-31.8); Chloride 97 mmol/L (96-109); Globulin 2.1 g/dL (1.6-3.3); Potassium 4.2 mmol/L (3.5-5.5); Sodium 138 mmol/L (135-145); Total Bilirubin 0.6 mg/dL (0.3-1.2); Total Protein 7.2 g/dL (6.2-8.2)
[2024-02-22 20:14] LABS: Testosterone <10.00 ng/dL (7.00-45.62)
[2024-02-22 20:54] LABS: Follicle Stimulating Hormone 67.4 mIU/mL
== END | disposition home or self-care (01) ==
LOC: LABWHC1 11:08
PROVIDERS: ATTEND Family Medicine
DX: Z00.00 Encounter for general adult medical examination without abnormal findings (principal); F43.9 Reaction to severe stress, unspecified; R68.82 Decreased libido
CPT/HCPCS: 36415; 80053; 80061; 82306; 82533; 82671; 83001; 84402; 84403; 85025

== ENCOUNTER → 2024-09-20 | Outpatient (CLI) | payer BC ==
--- NOTE | 2024-09-20 09:49 | MM ---
Reason for Exam: Screening (asymptomatic). Last mammogram was performed 1 year(s) and 1 month(s) ago. Patient History: Menarche at age 13. First Full-Term at age 20. Postmenopausal. Other cancer. Progesterone for 1 year, 2 months. Patient used Hormonal Contraceptives for 10 years. Patient used Unspecified Hormone for 2 years. 1979, Benign Excisional Biopsy on the right side. 1989, Benign Excisional Biopsy on the left side. Sister had breast cancer, age 40. Risk Values: Loni 5 year model risk: 3.7%. NCI Lifetime model risk: 20.0%. Prior Study Comparison: 09/03/2019 Bilateral Screening Mammogram, [facility]. 12/04/2021 Bilateral Screening Mammogram, [facility]. 07/25/2023 Bilateral MG screening mammo w CAD, [facility]. Tissue Density: The breasts are heterogeneously dense, which may obscure small masses. Findings: Analyzed By CAD. Right breast: More pronounced fibroglandular tissue posterior aspect MLO view posterior nipple line. Spot compression imaging of the MLO view posterior depth posterior nipple line recommended. Left breast: There is no suspicious group of microcalcifications or new suspicious mass. Overall Assessment: Incomplete: need additional imaging evaluation, BI-RAD 0 Management: Diagnostic Mammogram of the right breast. [facility] will attempt to contact patient to return for supplemental views and ultrasound if indicated. Patient should continue monthly self-breast exams. A clinical breast exam by your physician is recommended on an annual basis. This exam should not preclude additional follow-up of suspicious palpable abnormalities. Note on Loni scores and lifetime risk: 1. A Loni score greater than 3% is considered moderate risk. If this is the case, consider specialist referral to assess eligibility for a risk reducing agent. 2. If overall lifetime risk for the development of breast cancer is 20% or higher, the patient may qualify for future screening with alternating mammogram and breast MRI. [facility], , 09/20/2024 9:46 AM. Electronically signed and approved by: Yosvany Hart DO
== END | disposition home or self-care (01) ==
LOC: RADMAMWWP 08:56
PROVIDERS: ATTEND Family Medicine
DX: Z12.31 Encounter for screening mammogram for malignant neoplasm of breast (principal); R92.333 Mammographic heterogeneous density, bilateral breasts; Z78.0 Asymptomatic menopausal state; Z80.3 Family history of malignant neoplasm of breast
CPT/HCPCS: 77067

== ENCOUNTER → 2024-09-24 | Outpatient (CLI) | payer BC ==
--- NOTE | 2024-09-24 11:36 | MM ---
Reason for Exam: Additional evaluation requested from abnormal screening. Last screening mammogram was performed less than 1 month ago. Patient History: Menarche at age 13. First Full-Term at age 20. Postmenopausal. Progesterone for 1 year, 2 months. Patient used Hormonal Contraceptives for 10 years. Patient used Unspecified Hormone for 2 years. 1979, Benign Excisional Biopsy on the right side. 1989, Benign Excisional Biopsy on the left side. Sister had breast cancer, age 40. Risk Values: Loni 5 year model risk: 3.7%. NCI Lifetime model risk: 20.0%. Prior Study Comparison: 11/25/2006 Bilateral Screening Mammogram, [facility]. 02/04/2009 Bilateral Screening Mammogram, [facility]. 09/27/2015 Bilateral Screening Mammogram, [facility]. 12/04/2021 Bilateral Screening Mammogram, [facility]. 07/25/2023 Bilateral MG screening mammo w CAD, [facility]. 09/20/2024 Bilateral MG screening mammo w CAD, [facility]. Tissue Density: Right: The breasts are extremely dense, which lowers the sensitivity of mammography. Findings: Analyzed By CAD. No new suspicious lesion persists on additional views today. Overall Assessment: Negative, BI-RAD 1 Management: Screening Mammogram of both breasts in 1 year. Return to routine follow-up. Results were given to the patient verbally at the time of exam. Patient should continue monthly self-breast exams. A clinical breast exam by your physician is recommended on an annual basis. This exam should not preclude additional follow-up of suspicious palpable abnormalities. Note on Loni scores and lifetime risk: 1. A Loni score greater than 3% is considered moderate risk. If this is the case, consider specialist referral to assess eligibility for a risk reducing agent. 2. If overall lifetime risk for the development of breast cancer is 20% or higher, the patient may qualify for future screening with alternating mammogram and breast MRI. [facility], , 09/24/2024 11:33 AM. Electronically signed and approved by: Efren Pelayo M.D.
== END | disposition home or self-care (01) ==
LOC: RADMAMWWP 11:05
PROVIDERS: ATTEND Family Medicine
DX: R92.8 Other abnormal and inconclusive findings on diagnostic imaging of breast (principal); R92.341 Mammographic extreme density, right breast; Z78.0 Asymptomatic menopausal state; Z80.3 Family history of malignant neoplasm of breast
CPT/HCPCS: 77061; 77065